=== PATIENT | female | born 2000 | race Caucasian/White ===

== ENCOUNTER 2019-03-31 10:36 | Inpatient (IN) | payer BC ==
[2019-03-31] VITALS (440 sets, daily range): BP systolic 93–124; BP diastolic 43–74; PULSE 83–118; TEMP 98–98.8; O2SAT 66–100
[~2019-03-31] VITALS: Ht 165.1 cm; Wt 76.9 kg
[2019-03-31 11:03] LABS: ALANINE AMINOTRANSFERASE 24 U/L (9-52); ALBUMIN 4.7 gm/dL (3.5-5.0); ALKALINE PHOSPHATASE 97 U/L (50-136); ANION GAP 12 mmol/L (7-16); AST,SGOT 23 U/L (15-37); BILIRUBIN,TOTAL 0.7 mg/dL (0.0-1.0); BLOOD UREA NITROGEN 8 mg/dL (7-17); CALCIUM 10.2 mg/dL (8.4-10.2); CARBON DIOXIDE 24 mmol/L (22-30); CHLORIDE 108 mmol/L (98-107); CREATININE, serum 0.71 (0.52-1.25); GLUCOSE 109 mg/dL (74-106); POTASSIUM 4.4 mmol/L (3.4-5.0); SODIUM 144 mmol/L (137-145); TOTAL PROTEIN 8.3 gm/dL (6.4-8.2)
[2019-03-31 11:04] LABS: BASO # 0.1 (0.0-0.2); BASO % 0.7 % (0.0-2.0); EOS # 0.1 (0.0-0.7); EOS % 1.2 % (0-4.0); GRAN # 5.1 (1.4-6.5); GRAN % 53.6 % (42.2-75.2); HEMATOCRIT 42.4 % (35.0-45.0); HEMOGLOBIN 14.4 g/dl (12.0-15.0); LYMPH # 3.4 (1.2-3.4); LYMPH % 35.6 % (20.0-51.0); MEAN CELL VOLUME 92 fl (80.0-95.0); MEAN CORPUSCULAR HEMOGLOBIN 31 pg (26.0-32.0); MEAN CORPUSCULAR HGB CONC 34 g/dl (33.0-37.0); MONO # 0.8 (0.1-0.6); MONO % 8.6 % (1.7-9.3); PLATELET COUNT 311 K/mm3 (130-400); RED BLOOD COUNT 4.62 M/mm3 (4.10-5.30); REDCELL DISTRIBUTION WIDTH-CV 13.1 % (11.5-14.5)
[2019-03-31 11:12] LABS: ACETAMINOPHEN < 10 ug/mL (10-30); SALICYLATE < 1.0 mg/dL
[2019-03-31 11:13] LABS: ALCOHOL(ethanol),MEDICAL < 10 mg/dL
[2019-03-31 11:19] LABS: COLLECTION METHOD CLEAN CATCH
[2019-03-31 11:44] LABS: PH 7 (5-8); SQUAMOUS EPITHELIAL 0-2 /hpf; URINE APPEARANCE Clear; URINE BACTERIA Moderate /hpf; URINE BILIRUBIN Negative (NEGATIVE); URINE BLOOD Negative (NEGATIVE); URINE COLOR Colorless; URINE GLUCOSE Negative (NEGATIVE); URINE KETONE Negative (NEGATIVE); URINE LEUKOCYTE ESTERASE Negative (NEGATIVE); URINE NITRATE Negative (NEGATIVE); URINE PROTEIN(semi-quant) Negative (NEGATIVE); URINE RBC 0-2 /hpf; URINE UROBILINOGEN Negative (NEGATIVE)
[2019-03-31 11:45] LABS: TRICYCLIC ANTIDEPRESS URINE NEGATIVE
[2019-03-31 11:55] LABS: ARTERIAL BLD GAS TCO2 CT 21.9; ARTERIAL BLOOD GAS BASE EXCESS -3.5 (-2-2); ARTERIAL BLOOD GAS HCO3 20.8 meq/L (22-26); ARTERIAL BLOOD GAS PCO2 35.3 mmHg (35-45); ARTERIAL BLOOD GAS PO2 113.1 mmHg (80-100); ARTERIAL BLOOD GAS pH 7.39 (7.35-7.45)
--- NOTE | 2019-03-31 13:40 | NUR ---
Report recieved from ERNESTO Shepherd MD called to notifiy pt is reportedly now obtuned, difficut to arrouse yet holding airway without difficulty and EtCO2 within normal limits. MD Zunilda will be on unit soon to assess pt and consult MD Jose if required
--- NOTE | 2019-03-31 14:30 | NUR ---
Pt's mother Raquel called - information provided: mother and father Alen live in [place] - will arrive on flight tomorrow; pt has hives when given PCN; pt had suicide attempt rupa year of high school, was on Lexapro for awhile unitl pt was >17y/o and made self decision to stop drug; pt has been having school, sorority and relationship difficulties recently; no other medical problems or on any precription drugs. Family educated on [facility] Policy on Suicide Precautions and Visitor rules and regulations - family is still planning on coming to [facility].
[2019-03-31 15:26] LABS: ARTERIAL BLD GAS O2 SATURATION 97.9 % (92-100); ARTERIAL BLD GAS TCO2 CT 20.9; ARTERIAL BLOOD GAS BASE EXCESS -4.8 (-2-2); ARTERIAL BLOOD GAS HCO3 19.8 meq/L (22-26); ARTERIAL BLOOD GAS PCO2 35.4 mmHg (35-45); ARTERIAL BLOOD GAS PO2 107.5 mmHg (80-100); ARTERIAL BLOOD GAS pH 7.37 (7.35-7.45)
--- NOTE | 2019-03-31 17:05 | NUR ---
ERNESTO Cook from Poison Control updated. No orders advised.
--- NOTE | 2019-03-31 18:47 | NUR ---
Pt's mother Raquel called in for evening update. They are leaving [place] at 0800 and to arrive at [facility] around 1700. Reminded of Suicide Pt Visitor rules and regulations - Raquel verbally agrees and understands.
--- NOTE | 2019-03-31 19:00 | NUR ---
Since pt's arrival at 1400 pt has been a Suicide Observation Level I Incorrect charting that pt was Level II has occured - disregard Level II charting - Pt is Level I.
[2019-03-31 21:08] LABS: HEMATOCRIT 37.1 % (35.0-45.0); HEMOGLOBIN 12.6 g/dl (12.0-15.0); MEAN CELL VOLUME 92 fl (80.0-95.0); MEAN CORPUSCULAR HEMOGLOBIN 31 pg (26.0-32.0); MEAN CORPUSCULAR HGB CONC 34 g/dl (33.0-37.0); MEAN PLATELET VOLUME 8.8 fl (7.4-10.4); PLATELET COUNT 286 K/mm3 (130-400); RED BLOOD COUNT 4.03 M/mm3 (4.10-5.30); REDCELL DISTRIBUTION WIDTH-CV 13.1 % (11.5-14.5)
[2019-03-31 21:10] LABS: CALCIUM 9.1 mg/dL (8.4-10.2); CREATININE, serum 0.84 (0.52-1.25); MAGNESIUM 1.9 mg/dL (1.6-2.3); POTASSIUM 4.2 mmol/L (3.4-5.0)
[2019-03-31 21:41] LABS: BAND 5 % (0-10); LYMPHOCYTE 5 % (20.0-51.0); NEUTROPHILS 87 % (42.0-75.2)
[2019-03-31 21:42] LABS: PLATELET ESTIMATE NORMAL (NORMAL)
[2019-04-01] VITALS (1356 sets, daily range): BP systolic 93–140; BP diastolic 45–72; PULSE 78–114; TEMP 97.1–98.8; O2SAT 91–100
[2019-04-01 03:26] LABS: ARTERIAL BLD GAS O2 SATURATION 97.5 % (92-100); ARTERIAL BLD GAS TCO2 CT 13.1; ARTERIAL BLOOD GAS BASE EXCESS -16.5 (-2-2); ARTERIAL BLOOD GAS HCO3 11.9 meq/L (22-26); ARTERIAL BLOOD GAS PCO2 37.5 mmHg (35-45); ARTERIAL BLOOD GAS PO2 111.2 mmHg (80-100); ARTERIAL BLOOD GAS pH 7.12 (7.35-7.45)
[2019-04-01 04:29] LABS: BASO % 0.2 % (0.0-2.0); GRAN # 16.2 (1.4-6.5); GRAN % 93.1 % (42.2-75.2); HEMATOCRIT 41.6 % (35.0-45.0); HEMOGLOBIN 13.5 g/dl (12.0-15.0); LYMPH # 0.8 (1.2-3.4); LYMPH % 4.3 % (20.0-51.0); MEAN CORPUSCULAR HEMOGLOBIN 31 pg (26.0-32.0); MEAN CORPUSCULAR HGB CONC 33 g/dl (33.0-37.0); MEAN PLATELET VOLUME 8.7 fl (7.4-10.4); MONO # 0.3 (0.1-0.6); MONO % 1.8 % (1.7-9.3); PLATELET COUNT 300 K/mm3 (130-400); RED BLOOD COUNT 4.31 M/mm3 (4.10-5.30); REDCELL DISTRIBUTION WIDTH-CV 13.3 % (11.5-14.5)
--- NOTE | 2019-04-01 04:30 | NUR ---
At the beginning of the evening, PT aroused easily to sound and voice but was not alert/oriented, would open eyes when you said her name, at one point sat up suddenly and looked around but then quickly fell asleep. However, throughout the evening PT gradually needed more and more stimulation to open eyes. Provider was notified of this and assessed patient, we obtained an ABG, and PT's pH was noted to be 7.19. At this point, Dahlia Lamas APRN, talked with Dr. Garcia and decided to intubate the patient. This RN, ERNESTO Delanye, 2 RT staff, DELILAH Villagomez, and an anesthesologist were present for intubation which lasted from [id number]. PT was intubated at 0402. Vitals were taken q5min and CRM was constantly being monitored during the procedure. OG was placed shortly after and an X-Ray was obtained to verify placement. See drip titrations flowsheet and physican notification for further details. Bilateral soft wrist restraints placed per provider order.
[2019-04-01 04:31] LABS: ALBUMIN 4.2 gm/dL (3.5-5.0); BILIRUBIN,TOTAL 0.2 mg/dL (0.0-1.0); CALCIUM 8.8 mg/dL (8.4-10.2); CREATININE, serum 1.06 (0.52-1.25); POTASSIUM 5.3 mmol/L (3.4-5.0); TOTAL PROTEIN 7.5 gm/dL (6.4-8.2)
[2019-04-01 04:34] LABS: MEAN CELL VOLUME 97 fl (80.0-95.0)
--- NOTE | 2019-04-01 05:00 | NUR ---
Sedation vacation not performed as patient has yet to be adequately sedated since intubation. She continues to be restless.
[2019-04-01 05:23] LABS: ARTERIAL BLD GAS O2 SATURATION 99.4 % (92-100); ARTERIAL BLD GAS TCO2 CT 12.1; ARTERIAL BLOOD GAS BASE EXCESS -16.4 (-2-2); ARTERIAL BLOOD GAS HCO3 11.1 meq/L (22-26); ARTERIAL BLOOD GAS PCO2 32.2 mmHg (35-45)
[2019-04-01 05:24] LABS: ARTERIAL BLOOD GAS pH 7.16 (7.35-7.45)
--- NOTE | 2019-04-01 10:00 | NUR ---
Re: Suicide 15 min checks-Patient is intubated, sedated, continuously monitored, soft wrist restraints in place to protect lines and tubes. Unable to communicate presence or absence of SI.
[2019-04-01 14:03] LABS: ARTERIAL BLD GAS O2 SATURATION 99.1 % (92-100); ARTERIAL BLOOD GAS BASE EXCESS -0.8 (-2-2); ARTERIAL BLOOD GAS HCO3 20.3 meq/L (22-26); ARTERIAL BLOOD GAS PCO2 24.2 mmHg (35-45); ARTERIAL BLOOD GAS pH 7.54 (7.35-7.45)
[2019-04-01 14:04] LABS: ARTERIAL BLOOD GAS PO2 136.2 mmHg (80-100)
[2019-04-01 15:04] LABS: HEMATOCRIT 32.8 % (35.0-45.0); HEMOGLOBIN 11.2 g/dl (12.0-15.0)
[2019-04-01 15:07] LABS: INR 1.4 (0.8-3.0); PROTHROMBIN TIME 16.8 SECONDS (9.7-12.8)
[2019-04-01 15:24] LABS: CALCIUM 7.6 mg/dL (8.4-10.2); CREATININE, serum 1.02 (0.52-1.25)
[2019-04-01 15:29] LABS: POTASSIUM 2.9 mmol/L (3.4-5.0)
[2019-04-01 15:38] LABS: GASTROCCULT NEGATIVE; pH GASTRIC CONTENTS 1
--- NOTE | 2019-04-01 16:00 | NUR ---
Vacation held due to extreme agitation with attempts to reduce throughout shift.
--- NOTE | 2019-04-01 16:14 | NUR ---
Potassium replacement in progress. SR. SPO2 99% RR now 18. Lungs remain clear. Bicarb gtt stopped due to Alkalosis. UOP greater than 100/hr throughout shift.
--- NOTE | 2019-04-01 18:00 | NUR ---
Parents in to visit. Monitoring, current cares/equipment discussed. Reviewed lab trends, plan to attempt sedation vacation and/or vent weaning in am. contact info placed on chart, privacy code provided. Jewelry and underwear sent home with Barrett's mother.
--- NOTE | 2019-04-01 19:15 | NUR ---
Bedside report provided with patient's mother and father at bedside. Drips/IV rates/tubing, equipment, parameters reviewed. Questions addressed. Patient's mother and father retired for evening following report. Stated will return in am.
--- NOTE | 2019-04-01 20:00 | NUR ---
PT IS SEDATED AND ON MECHANICAL VENTILATION WITH 2 POINT SOFT WRIST RESTRAINTS IN ORDER TO REFRAIN FROM PULLING AT TUBES.
--- NOTE | 2019-04-01 20:15 | NUR ---
PT IS VENTILATED AND SEDATED WITH 2 POINT SOFT WRIST RESTRAINTS TO REFRAIN FROM PULLING OUT TUBES AND LINES.
[2019-04-01 20:28] LABS: CALCIUM 7.3 mg/dL (8.4-10.2); CREATININE, serum 1.26 (0.52-1.25); MAGNESIUM 1.9 mg/dL (1.6-2.3); POTASSIUM 4.7 mmol/L (3.4-5.0)
--- NOTE | 2019-04-01 21:00 | NUR ---
NO CHANGES FROM PREVIOUS DUE TO SEDATION.
[2019-04-02] VITALS (1066 sets, daily range): BP systolic 75–127; BP diastolic 41–81; PULSE 65–114; TEMP 97.7–99; O2SAT 95–100
[2019-04-02 05:14] LABS: ARTERIAL BLD GAS O2 SATURATION 98.2 % (92-100); ARTERIAL BLD GAS TCO2 CT 16.7; ARTERIAL BLOOD GAS BASE EXCESS -9.4 (-2-2); ARTERIAL BLOOD GAS HCO3 15.8 meq/L (22-26); ARTERIAL BLOOD GAS pH 7.31 (7.35-7.45)
[2019-04-02 05:15] LABS: ARTERIAL BLOOD GAS PO2 126.5 mmHg (80-100)
[2019-04-02 05:19] LABS: BASO % 0.1 % (0.0-2.0); GRAN # 10.5 (1.4-6.5); GRAN % 78.6 % (42.2-75.2); HEMOGLOBIN 11.6 g/dl (12.0-15.0); LYMPH # 1.3 (1.2-3.4); LYMPH % 9.7 % (20.0-51.0); MEAN CELL VOLUME 93 fl (80.0-95.0); MEAN CORPUSCULAR HEMOGLOBIN 31 pg (26.0-32.0); MEAN CORPUSCULAR HGB CONC 34 g/dl (33.0-37.0); MEAN PLATELET VOLUME 8.5 fl (7.4-10.4); MONO # 1.5 (0.1-0.6); MONO % 11.2 % (1.7-9.3); PLATELET COUNT 243 K/mm3 (130-400); RED BLOOD COUNT 3.69 M/mm3 (4.10-5.30); REDCELL DISTRIBUTION WIDTH-CV 14.1 % (11.5-14.5)
[2019-04-02 05:22] LABS: HEMATOCRIT 34.4 % (35.0-45.0)
[2019-04-02 05:27] LABS: ALBUMIN 3.3 gm/dL (3.5-5.0); BILIRUBIN,TOTAL 0.4 mg/dL (0.0-1.0); CREATININE, serum 1.67 (0.52-1.25); PHOSPHOROUS 4.1 mg/dL (2.5-4.5); POTASSIUM 4.4 mmol/L (3.4-5.0); TOTAL PROTEIN 5.9 gm/dL (6.4-8.2)
--- NOTE | 2019-04-02 09:05 | NUR ---
Due to the patient's condition (intubated), FUNERAL SERVICE MANAGER student contacted the patient's mother, Jayde More . Jayde reports she will be meet with FUNERAL SERVICE MANAGER student at 1300 or 1330 when she come to the hospital.
--- NOTE | 2019-04-02 10:08 | NUR ---
Pt more restless on CPAP trial. RT at bedside. Ventilator changed back to previous setting. Sedation increased back to previous setting.
[2019-04-02 11:05] LABS: COLLECTION METHOD CLEAN CATCH
[2019-04-02 11:15] LABS: MUCOUS Present /lpf; PH 5 (5-8); SQUAMOUS EPITHELIAL 0-2 /hpf; URINE APPEARANCE Clear; URINE BACTERIA Rare /hpf; URINE BILIRUBIN Negative (NEGATIVE); URINE BLOOD Negative (NEGATIVE); URINE COLOR Yellow; URINE GLUCOSE 1+ (NEGATIVE); URINE KETONE Negative (NEGATIVE); URINE LEUKOCYTE ESTERASE Trace (NEGATIVE); URINE NITRATE Negative (NEGATIVE); URINE PROTEIN(semi-quant) 1+ (NEGATIVE); URINE UROBILINOGEN Negative (NEGATIVE); URINE WBC 20-50 /hpf
--- NOTE | 2019-04-02 11:30 | NUR ---
Corby replaced due to pressure on upper lip. Pt tolerated change fairly well. Tube secured.
--- NOTE | 2019-04-02 14:53 | NUR ---
[employer] student met with the patient (intubated) and the patient's mother, Jayde and father, Alen to complete initial assessment. The patient is originally from [place], [place]. The patient is currently a student at [employer] and has been here since September 2017. The patient lives in an apartment. The patient does not use DME and is independent with ADLs. The patient's mother reports she is in contact with Brigida Ortiz from Student Services about the patient's hospitalization. Jayde reports she will be staying in [place] with the patient's grandmother until the patient recovers and Alen will be return to [place]. instructional media services technician will continue to follow to ensure a safe discharge.
--- NOTE | 2019-04-02 17:07 | NUR ---
DECREASED SEDATION FOR SEDATION VACATION.
--- NOTE | 2019-04-02 19:00 | NUR ---
Report given to ERNESTO Abel.
--- NOTE | 2019-04-02 20:00 | NUR ---
PT AWAKE, RESTLESS ANS AGITATED, ABLE TO TAKE HER LEFT WRIST RESTRAINTS OFF. CALLED DR. JONES AND ORDERED PRECEDEX AND WAS STARTED PER ORDER. WILL CONTINUE TO MONITOR.
[2019-04-03] VITALS (657 sets, daily range): BP systolic 98–122; BP diastolic 50–92; PULSE 55–95; TEMP 97.2–98.8; O2SAT 54–100
[2019-04-03 04:48] LABS: MEAN CELL VOLUME 93 fl (80.0-95.0); MEAN CORPUSCULAR HEMOGLOBIN 32 pg (26.0-32.0); MEAN CORPUSCULAR HGB CONC 34 g/dl (33.0-37.0); MEAN PLATELET VOLUME 9.1 fl (7.4-10.4); PLATELET COUNT 197 K/mm3 (130-400); RED BLOOD COUNT 3.47 M/mm3 (4.10-5.30); REDCELL DISTRIBUTION WIDTH-CV 13.8 % (11.5-14.5)
[2019-04-03 04:49] LABS: HEMATOCRIT 32.3 % (35.0-45.0)
[2019-04-03 04:59] LABS: ALBUMIN 3.3 gm/dL (3.5-5.0); BILIRUBIN,TOTAL 0.6 mg/dL (0.0-1.0); CALCIUM 7.4 mg/dL (8.4-10.2); CREATININE, serum 1.04 (0.52-1.25); MAGNESIUM 2.3 mg/dL (1.6-2.3); PHOSPHOROUS 2.8 mg/dL (2.5-4.5); TOTAL PROTEIN 5.9 gm/dL (6.4-8.2)
[2019-04-03 05:05] LABS: INR 1.1 (0.8-3.0); PROTHROMBIN TIME 13.2 SECONDS (9.7-12.8)
[2019-04-03 05:14] LABS: ARTERIAL BLD GAS O2 SATURATION 98.1 % (92-100); ARTERIAL BLD GAS TCO2 CT 20.9; ARTERIAL BLOOD GAS BASE EXCESS -2.7 (-2-2); ARTERIAL BLOOD GAS PCO2 28.6 mmHg (35-45); ARTERIAL BLOOD GAS PO2 109.1 mmHg (80-100); ARTERIAL BLOOD GAS pH 7.46 (7.35-7.45)
[2019-04-03 05:20] LABS: LYMPHOCYTE 5 % (20.0-51.0); NEUTROPHILS 94 % (42.0-75.2); PLATELET ESTIMATE NORMAL (NORMAL)
--- NOTE | 2019-04-03 07:13 | NUR ---
REPORT GIVEN TO ERNESTO DUPREE.
--- NOTE | 2019-04-03 07:25 | NUR ---
All sedation off. Garcia in to eval. Plan to extubate as soon as patient is alert without any periods of apnea.
--- NOTE | 2019-04-03 07:35 | NUR ---
PT EXTUBATED PER DR JONES'S ORDERS. SUCTIONED ETT AND ORALLY PRIOR TO EXTUBATION AND ORALLY POST. BLBS CLEAR AND EQUAL. NO STRIDOR NOTED. PT PLACED ON 4L OXYMASK WITH SPO2 98%, RR 20, HR 90. NO SIGNS OF DISTRESS NOTED.
--- NOTE | 2019-04-03 07:35 | NUR ---
Extubated to 5L Oxymask, patient tolerates well SPO2 98% OGT DCd crying, hyperventilating. Rests intermittently. Psych consult request faxed to office.
--- NOTE | 2019-04-03 14:46 | NUR ---
Rests intermittently. When awake, she varies between attempting to get out of bed, sitting up, rambling conversation and immediate return to sleep. Bed alarm on. Continuous cardiac monitoring in place, (SPO2 and BP cuff removed as they have been stable) to promote restful environment.
--- NOTE | 2019-04-03 18:30 | NUR ---
Bed alarm going off. Pt found sitting on floor in room. Artis discontinued. IV tubing disconnected from picc, blood dripping from plastic tip of remaining IV tubing remaining connected to cap. Pt holding stuffed animal alert, asking "how can I get out of this place? everything is so weird here" RN x 2 assist patient with getting up to wheelchair and transferring patient to room 7 so patient can have a window to reduce confusion r/t day/night. Gown changed. Skin inspected. Bruising noted on right knee with superficial abrasion. Pt is not able to recall if she had fallen or simply sat down. IV tubing changed and reconnected. Bedside report provided to oncoming shift. Provider notified of events. Artis remains out. Connected to monitoring tech. SR faustino Quinones. Bed alarm on and placed on highest sensitivity.
--- NOTE | 2019-04-03 19:15 | NUR ---
Received report from ERNESTO Dennis.
[2019-04-03 20:35] LABS: ARTERIAL BLD GAS TCO2 CT 24.9; ARTERIAL BLOOD GAS BASE EXCESS -0.7 (-2-2); ARTERIAL BLOOD GAS HCO3 23.7 meq/L (22-26); ARTERIAL BLOOD GAS PCO2 38.5 mmHg (35-45); ARTERIAL BLOOD GAS PO2 61.2 mmHg (80-100); ARTERIAL BLOOD GAS pH 7.41 (7.35-7.45)
--- NOTE | 2019-04-03 21:00 | NUR ---
Patient resting quietly in bed at this time. Attempts to sit up but is easily redirected to lie back down. Patient is alert to self, month, year, and current president, although is not alert of situation. Patient denies presence of pain or discomfort. Vitals within normal limits. Patient is 98% on room air, although is on 2L oxygen via nasal cannula at this time due to low O2 result of last blood gas. Will continue to monitor.
--- NOTE | 2019-04-03 21:40 | NUR ---
Patient continues to remove nasal cannula despite staff's effort to replace multiple times. RT notified.
--- NOTE | 2019-04-03 23:00 | NUR ---
After speaking with patient, Dahlia determined patient is actively suicidal. Received orders for patient to be under level III, or strict one-to-one observation orders. Will continue to monitor.
[2019-04-04] VITALS (26 sets, daily range): BP systolic 91–118; BP diastolic 46–86; PULSE 64–95; TEMP 97–98.7
--- NOTE | 2019-04-04 04:07 | NUR ---
By 0330, patient had not voided since removing marshall prior to shift change. Patient was toileted and stated she did not feel the need to void. Patient was bladder scanned, showing 492mL. Dahlia notified. Received orders to straight cath patient. Patient was straight cathed; 650 mL of clear, tea-colored urine emptied from bladder.
[2019-04-04 05:02] LABS: HEMOGLOBIN 10.3 g/dl (12.0-15.0); MEAN CELL VOLUME 95 fl (80.0-95.0); MEAN CORPUSCULAR HEMOGLOBIN 31 pg (26.0-32.0); MEAN CORPUSCULAR HGB CONC 33 g/dl (33.0-37.0); MEAN PLATELET VOLUME 9.2 fl (7.4-10.4); PLATELET COUNT 173 K/mm3 (130-400); RED BLOOD COUNT 3.29 M/mm3 (4.10-5.30); REDCELL DISTRIBUTION WIDTH-CV 13.9 % (11.5-14.5)
[2019-04-04 05:09] LABS: ALBUMIN 3.3 gm/dL (3.5-5.0); CALCIUM 7.8 mg/dL (8.4-10.2); CREATININE, serum 0.88 (0.52-1.25); MAGNESIUM 2.7 mg/dL (1.6-2.3); PHOSPHOROUS 3.3 mg/dL (2.5-4.5); POTASSIUM 4.4 mmol/L (3.4-5.0); TOTAL PROTEIN 5.7 gm/dL (6.4-8.2)
[2019-04-04 05:16] LABS: HEMATOCRIT 31.1 % (35.0-45.0)
[2019-04-04 06:04] LABS: BAND 2 % (0-10); LYMPHOCYTE 2 % (20.0-51.0); METAMYELOCYTE 1 % (0-0); NEUTROPHILS 93 % (42.0-75.2); PLATELET ESTIMATE NORMAL (NORMAL)
--- NOTE | 2019-04-04 11:33 | NUR ---
working with physical therapy, father assisting. More alert for longer periods of time today. Remains weak but improved from yesterday. Currently dangling at bedside with assist.
--- NOTE | 2019-04-04 20:19 | NUR ---
PATIENT WIIL MAKE DIRECT EYE CONTACT WITH COMMUNICATION, WITH LOW VOICE, WANTING TO LIE ON LEFT SIDE, DENIES DISCOMFORT, PARENTS HAVE JUST RECENTLY WENT HOME CALM QUIET VISIT.
--- NOTE | 2019-04-04 22:07 | NUR ---
PATIENT FINISHED WALK AROUND ROOM, NEED OF STAFF ASSISTANCE, PATIENT BECOMES FRUSTRATED WITH SELF ABOUT THE ABILITY TO NOT FOCUS ON WALKING, STANDING, AND REALITY OF WEAKNESS, PATIENT ABLE TO TALK OF SELF AND HAVE COMPLAINTS OF NOT BEING TO FOCUS, PATIENT PRESENTS WITH INABILITY TO REMEMBER WHY SHE IS IN HOSPITAL AND NOT BEING , REMORSEFUL..
--- NOTE | 2019-04-04 23:35 | NUR ---
PATIENT IS AWAKE AND ACTIVE IN BED WITH EATING FOOD PARENTS BROUGHT IN, DENIES DISCOMFORT, RELAXED, SPEECH CLEAR, WITH EYE CONTACT THROUGHOUT CONVERSATION
[2019-04-05] VITALS (37 sets, daily range): BP systolic 109–126; BP diastolic 70–82; PULSE 62–90; TEMP 97.1–99.2; O2SAT 92–98
--- NOTE | 2019-04-05 00:50 | NUR ---
PATIENT UP WALKED 20 STEPS AROUND ICU WITH A WALKER AID, STAFF ASSITANCE CLOSE BY,DENIES DISCOMFORT, TALKATIVE WITH DIRECT EYE CONTACT
--- NOTE | 2019-04-05 01:05 | NUR ---
PATIENT UP TO USE COMODE, 350CC OUT PUT WITH MENSES. PATIENT DENIES NEW PAD
[2019-04-05 04:54] LABS: GRAN # 5.4 (1.4-6.5); GRAN % 81.6 % (42.2-75.2); HEMOGLOBIN 10.6 g/dl (12.0-15.0); LYMPH # 0.6 (1.2-3.4); LYMPH % 8.3 % (20.0-51.0); MEAN CELL VOLUME 95 fl (80.0-95.0); MEAN CORPUSCULAR HEMOGLOBIN 31 pg (26.0-32.0); MEAN CORPUSCULAR HGB CONC 33 g/dl (33.0-37.0); MEAN PLATELET VOLUME 9.1 fl (7.4-10.4); MONO # 0.7 (0.1-0.6); MONO % 9.8 % (1.7-9.3); PLATELET COUNT 152 K/mm3 (130-400); RED BLOOD COUNT 3.44 M/mm3 (4.10-5.30); REDCELL DISTRIBUTION WIDTH-CV 13.5 % (11.5-14.5)
[2019-04-05 04:56] LABS: HEMATOCRIT 32.5 % (35.0-45.0)
[2019-04-05 05:02] LABS: ALBUMIN 2.9 gm/dL (3.5-5.0); BILIRUBIN,TOTAL 0.7 mg/dL (0.0-1.0); CALCIUM 7.9 mg/dL (8.4-10.2); CREATININE, serum 0.77 (0.52-1.25); MAGNESIUM 2.3 mg/dL (1.6-2.3); POTASSIUM 4.4 mmol/L (3.4-5.0); TOTAL PROTEIN 5.2 gm/dL (6.4-8.2)
--- NOTE | 2019-04-05 08:00 | NUR ---
Alert and oriented to current situation, unable to recall events of last few days, but does know she is in hospital in [facility], and today's date. Sitting up in chair eating breakfast. Reports intermittent nausea. Zofran given IVP.
--- NOTE | 2019-04-05 10:58 | NUR ---
Up to bathroom, nauseated and dry heaving while up on toilet. Gait improving, but remains unsteady/sways. Returned to bed.
--- NOTE | 2019-04-05 19:00 | NUR ---
Received report from ERNESTO Dennis.
--- NOTE | 2019-04-05 20:00 | NUR ---
Patient resting quietly in bed at this time. Denies any pain, although states she is feeling intermittent nausea. Is alert and oriented to self, time, place, and situation. Vitals within normal limits. Will continue to monitor.
[2019-04-06] VITALS (8 sets, daily range): BP systolic 123–128; BP diastolic 75–84; PULSE 58–76; TEMP 97.4–98.8; O2SAT 97–100
[2019-04-06 05:38] LABS: EOS # 0.1 (0.0-0.7); EOS % 0.8 % (0-4.0); GRAN # 3.8 (1.4-6.5); GRAN % 57.9 % (42.2-75.2); HEMOGLOBIN 10.9 g/dl (12.0-15.0); LYMPH % 29.9 % (20.0-51.0); MEAN CELL VOLUME 94 fl (80.0-95.0); MEAN CORPUSCULAR HEMOGLOBIN 31 pg (26.0-32.0); MEAN CORPUSCULAR HGB CONC 33 g/dl (33.0-37.0); MEAN PLATELET VOLUME 9.3 fl (7.4-10.4); MONO # 0.7 (0.1-0.6); MONO % 11.1 % (1.7-9.3); PLATELET COUNT 130 K/mm3 (130-400); RED BLOOD COUNT 3.48 M/mm3 (4.10-5.30); REDCELL DISTRIBUTION WIDTH-CV 13.1 % (11.5-14.5)
[2019-04-06 05:43] LABS: HEMATOCRIT 32.7 % (35.0-45.0)
[2019-04-06 05:48] LABS: BILIRUBIN,TOTAL 0.7 mg/dL (0.0-1.0); CALCIUM 8.3 mg/dL (8.4-10.2); CREATININE, serum 0.65 (0.52-1.25); TOTAL PROTEIN 5.5 gm/dL (6.4-8.2)
--- NOTE | 2019-04-06 07:00 | NUR ---
Report received from Tish OROZCO and care resumed.
--- NOTE | 2019-04-06 07:07 | NUR ---
Report given to ERNESTO Benitez.
--- NOTE | 2019-04-06 07:15 | NUR ---
Pt is currently on her period so underwear and pad are in place.
--- NOTE | 2019-04-06 07:20 | NUR ---
Pt awake upon assessment. Denies any pain. Pt does state she is tired of being her and wants to go home. Also stated she is tired of hearing her and points to room across rubio. Vitals obtained. Pt did have personal belongings in the room including a big oversized hoody she was wearing. Explained to pt that it would have to be removed. She stated "they have been letting me wear it as a blanket." Explained to pt that due to nature of admission she needed to be wearing the hospital provided adam gown and only the gown. Warm blankets were offered but refused. Pt also had several personal belongings in the room that were removed as well. Explained to pt that they would be locked up and kept safe. Gait belt, flat sheets, and scd's also removed from room. Pt denies any concerns or further needs at this time. Will continue to follow.
--- NOTE | 2019-04-06 07:59 | NUR ---
Called pt's mother, Jayde and updated her on pt's condition and psych policy. Stated that now that pt was medically stable and just waiting on psych evaluation that she would not be allowed visitors or phone calls. Also stated that we had to remove personal belongings. Mom states understanding. Will continue to follow.
--- NOTE | 2019-04-06 10:33 | NUR ---
Psychiatric consult was ordered for the patient. family services manager will continue to follow.
[2019-04-06 14:26] LABS: URINE T PROTEIN, RANDOM (PEP) 53 mg/dL (())
--- NOTE | 2019-04-06 16:47 | NUR ---
Dr. Keita reports the patient will voluntarily go to for inpatient psych treatment. NINO smart faxed referrals to [facility] and to [facility]. They both report they have availablity. Upon Dr. Keita's request PSYCHIATRIC SECRETARY student provided her phone number to both facilities. NINO smart gave both facilities the phone number to casting house laborer. customer services supervisor will continue to follow.
--- NOTE | 2019-04-06 19:13 | NUR ---
Report given to Samy OROZCO and care transfered.
--- NOTE | 2019-04-06 19:29 | NUR ---
report lyndon from ERNESTO Benitez. Introduced to patient who is alert and calm laying in bed. Went over the plan for trasnfer to [facility] for inpatient treatment, patient is aware and accepting.
--- NOTE | 2019-04-06 20:19 | NUR ---
Secure transport here to sp[place] picker patient. Let patient change to her personal clothing. All personal belongings gathered and handed to transport personel along with patient packet. No complications or questions asked at this time. Patient walked out independently.
--- NOTE | 2019-04-06 20:30 | NUR ---
Called and gave report to ERNESTO Justice at [facility].
--- NOTE | 2019-04-06 20:50 | NUR ---
called patients mother to confirm she had the patients jewelry, in which she did.
--- NOTE | 2019-04-07 08:58 | NUR ---
The patient discharged yesterday, 04/06 at approximately 1999 to [facility] for inpatient psychiatric treatment and was transported via [facility]. There are no addtional needs at this time.
== END 2019-04-06 20:19 | DRG 918 ==
LOC: COL.ER 10:36 → ICU 12:35
PROVIDERS: Emergency Medicine; Internal Medicine Nephrology; Internal Medicine Pulmonary Disease; Nurse Practitioner Family; Physician Assistant; ADMIT Internal Medicine
PROC: 02HV33Z Insertion of Infusion Device into Superior Vena Cava, Percutaneous Approach (ICD-10-PCS; principal; 2019-04-01)
PROC: 5A1945Z Respiratory Ventilation, 24-96 Consecutive Hours (ICD-10-PCS; 2019-04-01)
PROC: 0BH18EZ Insertion of Endotracheal Airway into Trachea, Via Natural or Artificial Opening Endoscopic (ICD-10-PCS; 2019-04-01)
DX: T39.312A Poisoning by propionic acid derivatives, intentional self-harm, initial encounter (principal); E87.2 Acidosis; N17.9 Acute kidney failure, unspecified; F17.210 Nicotine dependence, cigarettes, uncomplicated; E87.5 Hyperkalemia; E83.39 Other disorders of phosphorus metabolism; E83.51 Hypocalcemia; F32.9 Major depressive disorder, single episode, unspecified; F41.9 Anxiety disorder, unspecified; K21.9 Gastro-esophageal reflux disease without esophagitis; Z88.0 Allergy status to penicillin
CPT/HCPCS: 99223-AI; 99232-AI; 99233-AI; 99239; A9284; C1751; C1892; C9113; J0610; J1644; J2060; J2405; J2543; J2704; J2920; J2930; J3010; J3430; J3480; J7030; J7040; J7060; J7120